=== PATIENT | male | born 1995 | race Caucasian/White ===

== ENCOUNTER 2019-09-08 16:40 | Emergency (ER) | payer OTHER ==
[2019-09-08 16:55] VITALS: BP 145/53; PULSE 101
--- NOTE | 2019-09-08 17:14 | CR ---
[id number] RAD/RAD Chest PA or AP 1V EXAM: RAD Chest PA or AP 1V INDICATION: CHEST PAIN. COMPARISON: None. DISCUSSION: Cardiomediastinal silhouette is normal in size and contour. No infiltrate, effusion, pneumothorax, or edema. IMPRESSION: Negative examination of the chest. Richard James MD 09/08/19 [id number] Thank you for allowing us to participate in the care of your patient.
--- NOTE | 2019-09-08 17:16 | EDM.PDOC ---
ED HPI GENERAL MEDICAL PROBLEM - General Chief Complaint: General Stated Complaint: CHEST PX Time Seen by Provider: 09/08/19 17:09 Source of Information: Reports: Patient History Limitations: Reports: No Limitations - History of Present Illness INITIAL COMMENTS - FREE TEXT/NARRATIVE: Patient is a 24-year-old gentleman who presents to the emergency department this afternoon via private vehicle with a complaint of chest pain. Patient was seen at [facility], EKG was performed, and patient was sent to the hospital. Patient states that discomfort began at 10 p.m. last evening. Patient states he was sitting on the couch and felt a sharp pain to his left chest radiating to his left shoulder and neck. Pain persisted through the night , worsened today and he decided to present to the clinic. Patient does admit to extensive activity with shoveling at work over the past several days. Patient denies fever, out of area travel, family members with similar symptoms, history of any cardiac events or family history of early cardiac events, nausea , vomiting, diarrhea, abdominal pain, specific trauma, cough, shortness of breath, or any drug use. Onset: Sudden Onset Date: 09/07/19 Onset Time: 22:00 Duration: Hour(s): Location: Reports: Chest Quality: Reports: Sharp, Stabbing Severity: Severe Improves with: Reports: None Worsens with: Reports: Movement Context: Denies: Exercise, Lifting, Trauma Associated Symptoms: Denies: Fever/Chills, Nausea/Vomiting, Shortness of Breath Left Chest Pain Score (Numeric/FACES): 10 - Related Data Allergies Allergy/AdvReac Type Severity Reaction Status Date / Time No Known Drug Allergies Allergy Other Verified 09/08/19 17:09 Home Meds: Home Meds Acetaminophen [Tylenol Extra Strength] 1,000 mg PO Q6H PRN 02/04/15 [History] Cyclobenzaprine [Flexeril] 10 mg PO TID PRN 09/08/19 [History] valACYclovir HCl [valACYclovir] 1,000 mg PO DAILY PRN 09/08/19 [History] Past Medical History - Past Health History Medical/Surgical History: Denies Medical/Surgical History Social & Family History - Tobacco Use Smoking Status *Q: Current Every Day Smoker Years of Tobacco use: 3 Packs/Tins Daily: 0.5 - Caffeine Use Caffeine Use: Reports: Coffee, Energy Drinks, Soda, Tea - Recreational Drug Use Recreational Drug Use: No ED ROS GENERAL - Review of Systems Review Of Systems: Comprehensive ROS is negative, except as noted in HPI. Constitutional: Reports: No Symptoms HEENT: Reports: No Symptoms Respiratory: Reports: No Symptoms Cardiovascular: Reports: Chest Pain Endocrine: Reports: No Symptoms GI/Abdominal: Reports: No Symptoms : Reports: No Symptoms Musculoskeletal: Reports: No Symptoms Skin: Reports: No Symptoms Neurological: Reports: No Symptoms Psychiatric: Reports: No Symptoms Hematologic/Lymphatic: Reports: No Symptoms Immunologic: Reports: No Symptoms ED EXAM, GENERAL - Physical Exam Exam: See Below Exam Limited By: No Limitations General Appearance: Alert, WD/WN, Mild Distress Eye Exam: Bilateral Eye: Normal Inspection Nose: Normal Inspection, Normal Mucosa, No Blood Throat/Mouth: Normal Inspection, Normal Oropharynx, No Airway Compromise Head: Atraumatic, Normocephalic Neck: Normal Inspection, Supple, Non-Tender, Full Range of Motion Respiratory/Chest: No Respiratory Distress, Lungs Clear, Normal Breath Sounds, No Accessory Muscle Use, Other (No friction rub appreciated on auscultation) Cardiovascular: Regular Rate, Rhythm, No Murmur GI/Abdominal: Normal Bowel Sounds, Soft, Non-Tender Back Exam: Normal Inspection. No: CVA Tenderness (L), CVA Tenderness (R) Extremities: Normal Inspection, No Pedal Edema Neurological: Alert, Oriented, Normal Cognition Psychiatric: Normal Affect, Normal Mood Skin Exam: Warm, Dry, Intact, Normal Color, No Rash Lymphatic: No Adenopathy EKG INTERPRETATION EKG Date: 09/08/19 Time: 16:50 Rhythm: NSR Rate (Beats/Min): 96 [place]: Normal P-Wave: Present QRS: RBBB ST-T: Normal QT: Normal Comparison: No Change Course - Vital Signs Last Recorded V/S: Last Vital Signs Temp 98.4 F 09/08/19 16:50 Pulse 101 H 09/08/19 16:50 Resp 22 H 09/08/19 16:50 BP 145/53 H 09/08/19 16:50 Pulse Ox 99 09/08/19 16:50 - Orders/Labs/Meds Orders: Active Orders 24 hr Category Date Time Status EKG Documentation Completion [RC] ASDIRECTED Care 09/08/19 16:50 Active Peripheral IV Care [RC] . DIRECTED Care 09/08/19 18:20 Active Sodium Chloride 0.9% [Normal Saline] 50 ml Med 09/08/19 17:30 Active IV ASDIRECTED Sodium Chloride 0.9% [Saline Flush] Med 09/08/19 18:20 Active 10 ml FLUSH Q8HR PRN Peripheral IV Insertion Adult [OM.PC] Routine Oth 09/08/19 18:20 Ordered EKG 12 Lead [EK] Routine Ther 09/08/19 16:50 Ordered Medication Orders Sodium Chloride (Normal Saline) 50 mls @ 200 mls/min IV ASDIRECTED CORTNEY Last Admin: 09/08/19 18:10 Dose: 200 mls/min Sodium Chloride (Saline Flush) 10 ml FLUSH Q8HR PRN PRN Reason: keep vein open Labs: Laboratory Tests 09/08/19 09/08/19 Range/Units 16:45 16:45 WBC 11.65 H (5.00-10.00) 10^3/uL RBC 5.16 (4.50-6.00) 10^6/uL Hgb 15.6 (13.0-17.0) g/dL Hct 43.8 (40.0-52.0) % MCV 84.9 D (82.0-92.0) fL MCH 30.2 (27.0-31.0) pg MCHC 35.6 (32.0-36.0) g/dL RDW 11.8 (11.5-14.5) % Plt Count 305 (150-400) 10^3/uL MPV 10.5 H (7.4-10.4) fL Immature Gran % (Auto) 0.1 (0.0-5.0) % Neut % (Auto) 71.7 H (50.0-70.0) % Lymph % (Auto) 19.1 L (20.0-40.0) % [place] % (Auto) 7.9 (2.0-8.0) % Eos % (Auto) 0.8 L (1.0-3.0) % Baso % (Auto) 0.4 (0.0-1.0) % Immature Gran # (Auto) 0.01 (0.00-0.50) 10^3/uL Neut # (Auto) 8.36 H (2.50-7.00) 10^3/uL Lymph # (Auto) 2.22 (1.00-4.00) 10^3/uL [place] # (Auto) 0.92 H (0.10-0.80) 10^3/uL Eos # (Auto) 0.09 L (0.10-0.30) 10^3/uL Baso # (Auto) 0.05 (0.00-0.10) 10^3/uL ESR 21 H (0-15) mm/hr Sodium 142 (136-145) mmol/L Potassium 3.7 (3.3-5.3) mmol/L Chloride 101 (98-115) mmol/L Carbon Dioxide 27.0 (21.0-32.0) mmol/L Anion Gap 17.7 H (5-15) mmol/L BUN 12 (6-25) mg/dL Creatinine 0.88 (0.51-1.17) mg/dL Est Cr Clr Drug Dosing 135.95 mL/min Estimated GFR (MDRD) > 60 mL/min Glucose 100 H (75 - 99) mg/dL Calcium 9.4 (8.7-10.3) mg/dL Magnesium 1.8 (1.8-2.4) mg/dL Total Bilirubin 1.3 H (0.2-1.0) mg/dL AST 29 (15-37) U/L ALT 53 (12-78) U/L Alkaline Phosphatase 75 (46-116) IU/L Troponin I < 0.04 (0.00-0.070) ng/mL Total Protein 8.5 H (6.4-8.2) g/dL Albumin 4.47 (3.00-4.80) g/dL Meds: Medications Generic Name Dose Route Start Last Admin Trade Name Freq PRN Reason Stop Dose Admin Sodium Chloride 50 mls @ 200 mls/min 09/08/19 17:30 09/08/19 18:10 Normal Saline IV 200 mls/min ASDIRECTED CORTNEY Administration Sodium Chloride 10 ml 09/08/19 18:20 Saline Flush FLUSH Q8HR PRN keep vein open Discontinued Medications Generic Name Dose Route Start Last Admin Trade Name Freq PRN Reason Stop Dose Admin Sodium Chloride 1,000 mls @ 999 mls/hr 09/08/19 17:22 09/08/19 17:30 Normal Saline IV 09/08/19 18:22 999 mls/hr .BOLUS ONE Administration Iopamidol 100 ml 09/08/19 17:28 09/08/19 18:10 [id number] (76%) IV 09/08/19 17:29 75 ml ONETIME ONE Administration Ketorolac Tromethamine 30 mg 09/08/19 17:09 09/08/19 17:20 Toradol IVPUSH 09/08/19 17:10 30 mg ONETIME ONE Administration Ondansetron HCl 4 mg 09/08/19 17:22 09/08/19 17:33 Zofran IVPUSH 09/08/19 17:23 4 mg ONETIME ONE Administration - Radiology Interpretation Free Text/Narrative:: Chest x-ray shows no acute cardiopulmonary process CT chest with IV contrast shows normal heart size and contour, no pericardial effusion or pericarditis, but does show a small focal area at the lingula representing either pneumonia or atelectasis. Patient does not have any upper respiratory symptoms. - Re-Assessments/Exams Free Text/Narrative Re-Assessment/Exam: 09/08/19 18:47 Patient afebrile, vital signs stable, pain resolved following Toradol administration. Patient has a scheduled appointment tomorrow at [facility]. Return to the ER if symptoms worsened this evening. Departure - Departure Time of Disposition: 18:49 Disposition: Home, Self-Care 01 Condition: Good Clinical Impression: Costochondritis, acute, Right bundle branch block - Discharge Information Instructions: Electrocardiogram, [id number], Costochondritis, [id number], Chest Wall Pain, [id number] Referrals: Ginette Garcia PA-C [Primary Care Provider] - Forms: ED Department Discharge Additional Instructions: Follow-up tomorrow as scheduled at [facility]. Return to emergency department sooner if symptoms continue or worsen. Sepsis Event Note - Evaluation Sepsis Screening Result: No Definite Risk - Focused Exam Vital Signs: Vital Signs Temp Pulse Resp BP Pulse Ox 09/08/19 16:50 98.4 F 101 H 22 H 145/53 H 99 Date Exam was Performed: 09/08/19 Time Exam was Performed: 18:47 - My Orders Last 24 Hours: My Active Orders 09/08/19 16:50 EKG Documentation Completion [RC] ASDIRECTED EKG 12 Lead [EK] Routine 09/08/19 17:30 Sodium Chloride 0.9% [Normal Saline] 50 ml IV ASDIRECTED 09/08/19 18:20 Peripheral IV Care [RC] . DIRECTED Sodium Chloride 0.9% [Saline Flush] 10 ml FLUSH Q8HR PRN Peripheral IV Insertion Adult [OM.PC] Routine - Assessment/Plan Last 24 Hours: My Active Orders 09/08/19 16:50 EKG Documentation Completion [RC] ASDIRECTED EKG 12 Lead [EK] Routine 09/08/19 17:30 Sodium Chloride 0.9% [Normal Saline] 50 ml IV ASDIRECTED 09/08/19 18:20 Peripheral IV Care [RC] . DIRECTED Sodium Chloride 0.9% [Saline Flush] 10 ml FLUSH Q8HR PRN Peripheral IV Insertion Adult [OM.PC] Routine Assessment:: Costochondritis Plan: Follow-up with PCP
[2019-09-08] MEDS: Ketorolac 30 MG/ML SDV IVPUSH ONE (17:20)
[2019-09-08 17:21] LABS: ANION GAP 17.7 mmol/L (5-15); CHLORIDE,CL 101 mmol/L (98-115)
[2019-09-08] MEDS: Sodium Chloride 0.9% 1,000 ML IV ONE (17:30)
[2019-09-08] MEDS: Ondansetron 4 MG/2 ML SDV IVPUSH ONE (17:33)
[2019-09-08 17:43] LABS: SODIUM,NA 142 mmol/L (136-145)
[2019-09-08] MEDS: Iopamidol 755 Mg/ML 100 ML Bottle IV ONE (18:10)
[2019-09-08] MEDS: Sodium Chloride 0.9% 50 ML IV SCH (18:10)
[2019-09-08] MEDS ORDERED: Sodium Chloride 0.9% 10 ML Syringe FLUSH PRN (18:20)
--- NOTE | 2019-09-08 18:39 | CT ---
[id number] CT/CT Chest W IV EXAM: CT Chest W IV CLINICAL DATA: CHEST PAIN. COMPARISON: Radiograph from today. FINDINGS: LUNGS: Small focal area of parenchymal opacification in the lingula of the upper lobe (series 2 image 76 and series 5 image 18). Remainder of the lungs are clear. No pneumothorax or effusion. HEART AND GREAT VESSELS: Heart is normal in size and contour. No pericardial effusion or other evidence of pericarditis. MEDIASTINUM AND LYMPHATICS: No mediastinal or hilar lymphadenopathy. UPPER ABDOMINAL ORGANS: Normal. BONES: Normal. IMPRESSION: Small focal area of parenchymal opacification in the lingula of the left upper lobe. Correlate with site of pain, as this could represent a small area of developing pneumonia or atelectasis. Otherwise, negative examination of the chest. Richard James MD 09/08/19 [id number] Thank you for allowing us to participate in the care of your patient.
== END 2019-09-08 19:00 | disposition home or self-care (01) ==
LOC: KA.ED 16:40
DX: M94.0 Chondrocostal junction syndrome [Tietze] (principal); I45.10 Unspecified right bundle-branch block; F17.210 Nicotine dependence, cigarettes, uncomplicated
CPT/HCPCS: 71045; 71260; 80053; 83735; 84484; 85025; 85651; 93005; 96361; 96374; 96375; 99284; 99285-25; J1885; J2405; J7030; J7050; Q9967

== ENCOUNTER 2023-12-20 04:26 | Emergency (ER) | payer BC, OTHER ==
[2023-12-20] MEDS: Sodium Chloride 0.9% 1,000 ML IV ONE (04:51)
[2023-12-20] MEDS: Ketorolac 30 MG/ML SDV IVPUSH ONE (04:51)
[2023-12-20] MEDS ORDERED: Sodium Chloride 0.9% 10 ML Syringe FLUSH PRN (04:58)
[2023-12-20 05:02] LABS: BASOPHILS ABSOLUTE AUTO 0.05 10^3/uL (0.00-0.10); BASOPHILS PERCENT AUTO 0.6 % (0.0-1.0); EOSINOPHILS ABSOLUTE AUTO 0.23 10^3/uL (0.10-0.30); HEMATOCRIT 40.4 % (40.0-52.0); IMMATURE GRAN ABSOLUTE AUTO 0.01 10^3/uL (0.00-0.50); IMMATURE GRAN PERCENT AUTO 0.1 % (0.0-5.0); LYMPHOCYTES ABSOLUTE AUTO 2.35 10^3/uL (1.00-4.00); LYMPHOCYTES PERCENT AUTO 30.5 % (20.0-40.0); MEAN CORPUSCULAR HEMOGLOBIN 31.1 pg (27.0-31.0); MEAN CORPUSCULAR HGB CONC 37.1 g/dL (32.0-36.0); MEAN CORPUSCULAR VOLUME 83.6 fL (82.0-92.0); MEAN PLATELET VOLUME 10.1 fL (7.4-10.4); MONOCYTES ABSOLUTE AUTO 0.52 10^3/uL (0.10-0.80); MONOCYTES PERCENT AUTO 6.7 % (2.0-8.0); NEUTROPHILS ABSOLUTE AUTO 4.55 10^3/uL (2.50-7.00); NEUTROPHILS PERCENT AUTO 59.1 % (50.0-70.0); PLATELET COUNT,PLT 238 10^3/uL (150-400); RED BLOOD CELL COUNT 4.83 10^6/uL (4.50-6.00); RED CELL DISTRIBUTION WIDTH 11.8 % (11.5-14.5); WHITE BLOOD CELL COUNT,WBC 7.71 10^3/uL (5.00-10.00)
[2023-12-20 05:19] LABS: APPEARANCE,URINE CLEAR (CLEAR); BILIRUBIN,URINE NEGATIVE (NEGATIVE); COLOR,URINE YELLOW (YELLOW); GLUCOSE,URINE NEGATIVE (NEGATIVE); KETONES,URINE TRACE mg/dL (NEGATIVE); LEUKOCYTE ESTERASE,URINE NEGATIVE (NEGATIVE); NITRITE,URINE NEGATIVE (NEGATIVE); OCCULT BLOOD,URINE NEGATIVE (NEGATIVE); PH,URINE 5.5 (5.0-9.0); PROTEIN,URINE NEGATIVE (NEGATIVE); UROBILINOGEN,URINE 0.2 E.U./dL (0.2-1.0)
[2023-12-20 05:34] LABS: ANION GAP 13.5 mmol/L (5-15); CALCIUM 8.9 mg/dL (8.7-10.3); CARBON DIOXIDE,CO2 28.3 mmol/L (21.0-32.0); CREATININE 0.98 mg/dL (0.51-1.17); EST CRCL DRUG DOSING (CG) 121.66 mL/min; POTASSIUM,K 3.8 mmol/L (3.5-5.1)
[2023-12-20 06:21] VITALS: BP 133/78; PULSE 65
== END 2023-12-20 06:26 ==
LOC: KA.ED 04:26
DX: N50.812 Left testicular pain (principal); N50.811 Right testicular pain; Z79.899 Other long term (current) drug therapy; Z88.0 Allergy status to penicillin
CPT/HCPCS: 36415; 74176; 80048; 81003; 85025; 96361; 96374; 99285; J1885; J7030; 99283